=== PATIENT | male | born 1990 | race Caucasian/White ===

== ENCOUNTER 2019-03-18 00:28 | Emergency (ER) | payer BC ==
[~2019-03-18] VITALS: Ht 177.8 cm; Wt 104.3 kg
[~2019-03-18 00:28] MED LIST: ALBU90OI INH; AMOX500 PO; AMOX875 PO; AZIT250 PO; BACITO TP; BUPR150ER PO; CEPH500 PO; CODACE30 PO; CODGUAEL PO; CRUTCH3 USE; DOXY100 PO; FLUT.05NI; HYDACE5 PO; IBUP200 PO; IBUP400; IBUP400 PO; IBUP600 PO; IBUPROFEN 600 MG; NAPR500 PO; OXYACE5T PO; PRED20 PO; PROCODE120 PO; PROM25 PO; Percocet 10-321 EACH PO; RXHYDACE PO; RXOXYACE PO; RXPROM25 PO; SULTRIDS PO
== END 2019-03-18 01:45 | disposition home or self-care (01) ==
LOC: ER 00:28
DX: T23.052A Burn of unspecified degree of left palm, initial encounter (principal); T31.0 Burns involving less than 10% of body surface; F17.220 Nicotine dependence, chewing tobacco, uncomplicated; X15.0XXA Contact with hot stove (kitchen), initial encounter
CPT/HCPCS: 16020; 99283; A9270; A9270-GY

== ENCOUNTER → 2021-12-25 | Outpatient (CLI) | payer BC | END | disposition home or self-care (01) | LOC: LAB 17:54 → LAB SHORT 17:54 | DX: J03.91 Acute recurrent tonsillitis, unspecified (principal) | CPT/HCPCS: 87081 ==